=== PATIENT | male | born 1970 | race Caucasian/White ===

== ENCOUNTER 2018-10-25 12:18 | Inpatient (IN) | payer MEDICAID ==
[~2018-10-25] VITALS: Ht 177.8 cm; Wt 79.5 kg
--- NOTE | 2018-10-25 12:42 | NUR ---
Healing puncture w/ slight surrounding swelling above L elbow x several wks.
[2018-10-25 12:56] LABS: BASOPHILS # (AUTO) 0.06 x10^3/uL (0-0.1); BASOPHILS % (AUTO) 1 % (0-1); EOSINOPHILS # (AUTO) 0.14 x10^3/uL (0-0.4); EOSINOPHILS % (AUTO) 1 % (1-7); LYMPHOCYTES # (AUTO) 2.79 x10^3/uL (1-3.4); LYMPHOCYTES % (AUTO) 22 % (22-44); MD NO; MEAN CORPUSCULAR HEMOGLOBIN 29.7 pg (27.5-34.5); MEAN CORPUSCULAR HGB CONC 33.2 g/dL (33.2-36.2); MEAN CORPUSCULAR VOLUME 89.4 fL (81-97); MONOCYTES # (AUTO) 0.53 x10^3/uL (0.2-0.8); MONOCYTES % (AUTO) 4 % (2-9); NEUTROPHILS # (AUTO) 9.01 x10^3/uL (1.8-6.8); NEUTROPHILS % (AUTO) 72 % (42-75); PLATELET COUNT 411 x10^3/uL (130-400); RED BLOOD COUNT 5.18 x10^6/uL (4.38-5.82); RED CELL DISTRIBUTION WIDTH 16.4 % (9.4-14.8)
--- NOTE | 2018-10-25 13:53 | NUR ---
Pt TBADM for possible infection at hardware site L arm. Pt updated, changed into gown, IV being est. Keeping NPO for now.
[2018-10-25 13:57] LABS: ANION GAP 3 mmol/L (5-15); CHLORIDE 107 mmol/L (98-107); CREATININE 1.25 mg/dL (0.7-1.3)
[2018-10-25] MEDS ORDERED: NICOTINE 21 MG/24 HR PATCH.TD24 ONE (14:04)
--- NOTE | 2018-10-25 14:10 | NUR ---
Break RN: Pt requesting to go outside to smoke, pt educated on admit process, pt agrees to nicotine patch. Pt ambulated to registration desk to use phone per request.
--- NOTE | 2018-10-25 14:12 | NUR ---
Break RN: Ortho at bedside for eval.
[2018-10-25] MEDS ORDERED: NICOTINE 21 MG/24 HR PATCH.TD24 TD ONE (14:30)
[2018-10-25] MEDS ORDERED: SODIUM CHLORIDE FLUSH 10ML SYR IVF PRN (15:00)
--- NOTE | 2018-10-25 15:10 | NUR ---
Resting comfortably, watching T.V. Waiting on room assignment.
--- NOTE | 2018-10-25 15:52 | NUR ---
Report to Mati SALAMANCA, 4N. Pt updated on room assignment.
[2018-10-25 16:55] VITALS: BP 136/95
[2018-10-25] MEDS ORDERED: VANCOMYCIN PER PHARMACY MC PRN (17:00)
[2018-10-25] MEDS ORDERED: VANCOMYCIN IV SCH (17:00)
[2018-10-25] MEDS ORDERED: hydrALAzine 20 MG/ML, 1ML IVPush PRN (17:00)
[2018-10-25] MEDS ORDERED: LABETALOL 5MG/ML, 20ML IVPush PRN (17:00)
[2018-10-25] MEDS ORDERED: ACETAMINOPHEN 325 MG TABLET PO PRN ×2 (17:00→20:30)
[2018-10-25] MEDS ORDERED: ONDANSETRON 2MG/ML, 2ML IVPush PRN (17:00)
[2018-10-25] MEDS ORDERED: IBUPROFEN 600 MG TABLET PO PRN (17:00)
[2018-10-25] MEDS ORDERED: GABAPENTIN 300 MG CAPSULE PO PRN (17:00)
[2018-10-25] MEDS ORDERED: BISACODYL 10 MG SUPP PR PRN (17:00)
[2018-10-25] MEDS ORDERED: ZOLPIDEM 5MG TABLET PO PRN (17:00)
[2018-10-25] MEDS ORDERED: ONDANSETRON ODT 4 MG PO PRN (17:00)
[2018-10-25] MEDS ORDERED: PHARMACOKINETIC CONSULTATION MC ONE (17:30)
[2018-10-25] MEDS ORDERED: PHARMACOKINETIC MONITORING MC PRN (17:30)
[2018-10-25] MEDS: NICOTINE 21 MG/24 HR PATCH.TD24 TD SCH (17:31)
[2018-10-25 17:39] LABS: HCT (SEDRATE) 45.5 % (39.2-51.8)
[2018-10-25] MEDS ORDERED: BUPIVACAINE/PF-EPI 0.5% 1:200K ONE (17:41)
[2018-10-25] MEDS: AMPICILLIN/SULBACTAM 3 GM in SODIUM CHLORIDE 0.9% 100 ML IV SCH (17:46)
[2018-10-25] MEDS: LACTATED RINGERS 1,000 ML IV SCH (17:46)
[2018-10-25 17:49] LABS: C-REACTIVE PROTEIN, QUANT 0.13 mg/dL (0.02-0.49)
[2018-10-25 17:58] LABS: FREE T4 (FREE THYROXINE) 0.83 ng/dL (0.76-1.46); THYROID STIMULATING HORMONE 0.698 mIU/L (0.358-3.740)
[2018-10-25] MEDS: VANCOMYCIN 1,500 MG in SODIUM CHLORIDE 0.9% 250 ML IV SCH (18:28)
[2018-10-25 19:03] VITALS: BP 130/86
[2018-10-25] MEDS ORDERED: MIDAZOLAM 1 MG/ML, 2ML ONE (19:45)
[2018-10-25] MEDS ORDERED: FENTANYL PF 250 MCG/5ML ONE (19:45)
[2018-10-25] MEDS ORDERED: PHENYLEPHRINE 10 MG/ML ONE (19:47)
[2018-10-25] MEDS ORDERED: HYDROmorphone 2 MG/ML, 1ML IVPush PRN (20:30)
[2018-10-25] MEDS ORDERED: OXYcodone 5 MG/5 ML ORAL.SOL UDC PO PRN (20:30)
[2018-10-25] MEDS ORDERED: ONDANSETRON 2MG/ML, 2ML IV PRN (20:30)
[2018-10-25] MEDS ORDERED: MEPERIDINE/PF 25MG/0.5ML IVPush PRN (20:30)
[2018-10-25] MEDS ORDERED: ONDANSETRON ODT 8 MG PO PRN (20:30)
[2018-10-25] MEDS ORDERED: PROMETHAZINE 25 MG/ML, 1ML IV PRN (20:30)
[2018-10-25] MEDS ORDERED: LORazepam 2 MG/ML, 1ML IVPush PRN (20:30)
[2018-10-25] MEDS ORDERED: CEFAZOLIN 1,000 MG ONE (20:53)
[2018-10-25] MEDS ORDERED: GLYCOPYRROLATE 0.2MG/1ML, 5ML ONE (20:53)
[2018-10-25] MEDS ORDERED: OXYcodone 5 MG/5 ML ORAL.SOL UDC ONE (20:53)
[2018-10-25] MEDS ORDERED: ACETAMINOPHEN 650 MG/20.3 ML UDC ONE (20:53)
[2018-10-25] MEDS ORDERED: DEXAMETHASONE 4 MG/ML, 1ML ONE (20:53)
[2018-10-25] MEDS ORDERED: FENTANYL PF 100 MCG/2ML ONE (20:53)
[2018-10-25] MEDS ORDERED: ONDANSETRON 2MG/ML, 2ML ONE (20:53)
[2018-10-25] MEDS ORDERED: SUCCINYLCHOLINE 20 MG/ML, 10ML ONE (20:53)
[2018-10-25] MEDS ORDERED: PROPOFOL 10 MG/ML, 20ML ONE (20:53)
[2018-10-25] MEDS ORDERED: NEOSTIGMINE 1 MG/ML, 10ML ONE (20:53)
[2018-10-25] MEDS ORDERED: ROCURONIUM 10MG/ML,5ML ONE (20:53)
[2018-10-25] MEDS: FAMOTIDINE 20 MG TABLET PO SCH (21:00)
[2018-10-25] MEDS: FENTANYL PF 100 MCG/2ML IV PRN ×2 (21:12→21:27)
[2018-10-25] MEDS ORDERED: HYDROmorphone 1 MG/ML, 1ML IV PRN (22:30)
[2018-10-25] MEDS: ENOXAPARIN 40 MG/0.4 ML SQ SCH (23:18)
[2018-10-26 00:14] VITALS: BP 115/77
[2018-10-26] MEDS: OXYcodone/APAP 10/325MG TABLET PO PRN ×4 (01:10→20:09)
[2018-10-26] MEDS: AMPICILLIN/SULBACTAM 3 GM in SODIUM CHLORIDE 0.9% 100 ML IV SCH ×3 (01:10→17:14)
[2018-10-26] MEDS: LACTATED RINGERS 1,000 ML IV SCH ×3 (03:00→23:00)
[2018-10-26 03:39] VITALS: BP 105/63
[2018-10-26 05:29] LABS: BASOPHILS # (AUTO) 0.02 x10^3/uL (0-0.1); BASOPHILS % (AUTO) 0 % (0-1); EOSINOPHILS # (AUTO) 0.07 x10^3/uL (0-0.4); EOSINOPHILS % (AUTO) 1 % (1-7); LYMPHOCYTES # (AUTO) 1.35 x10^3/uL (1-3.4); LYMPHOCYTES % (AUTO) 16 % (22-44); MD NO; MEAN CORPUSCULAR HEMOGLOBIN 30.1 pg (27.5-34.5); MEAN CORPUSCULAR HGB CONC 33.7 g/dL (33.2-36.2); MEAN CORPUSCULAR VOLUME 89.5 fL (81-97); MEAN PLATELET VOLUME 8.1 fL (7.4-10.4); MONOCYTES # (AUTO) 0.27 x10^3/uL (0.2-0.8); MONOCYTES % (AUTO) 3 % (2-9); NEUTROPHILS # (AUTO) 6.92 x10^3/uL (1.8-6.8); NEUTROPHILS % (AUTO) 80 % (42-75); PLATELET COUNT 378 x10^3/uL (130-400); RED BLOOD COUNT 4.69 x10^6/uL (4.38-5.82)
[2018-10-26 05:40] LABS: ANION GAP 4 mmol/L (5-15); CHLORIDE 107 mmol/L (98-107)
[2018-10-26 05:41] LABS: CREATININE 1.12 mg/dL (0.7-1.3)
[2018-10-26 07:21] VITALS: BP 106/70
[2018-10-26] MEDS: NICOTINE 21 MG/24 HR PATCH.TD24 TD SCH (09:12)
[2018-10-26] MEDS: FAMOTIDINE 20 MG TABLET PO SCH ×2 (09:12→19:51)
[2018-10-26 14:22] VITALS: BP 129/72
[2018-10-26] MEDS: VANCOMYCIN 1,500 MG in SODIUM CHLORIDE 0.9% 250 ML IV SCH (17:44)
[2018-10-26 19:14] VITALS: BP 127/88
[2018-10-26] MEDS: ENOXAPARIN 40 MG/0.4 ML SQ SCH (19:59)
[2018-10-27] MEDS: AMPICILLIN/SULBACTAM 3 GM in SODIUM CHLORIDE 0.9% 100 ML IV SCH ×2 (01:16→09:24)
[2018-10-27 03:30] VITALS: BP 120/78
[2018-10-27 05:44] LABS: BASOPHILS # (AUTO) 0.07 x10^3/uL (0-0.1); BASOPHILS % (AUTO) 1 % (0-1); EOSINOPHILS # (AUTO) 0.23 x10^3/uL (0-0.4); EOSINOPHILS % (AUTO) 3 % (1-7); LYMPHOCYTES # (AUTO) 3.83 x10^3/uL (1-3.4); LYMPHOCYTES % (AUTO) 41 % (22-44); MD NO; MEAN CORPUSCULAR HEMOGLOBIN 30.8 pg (27.5-34.5); MEAN CORPUSCULAR HGB CONC 34.8 g/dL (33.2-36.2); MEAN CORPUSCULAR VOLUME 88.3 fL (81-97); MEAN PLATELET VOLUME 7.6 fL (7.4-10.4); MONOCYTES # (AUTO) 0.76 x10^3/uL (0.2-0.8); MONOCYTES % (AUTO) 8 % (2-9); NEUTROPHILS # (AUTO) 4.44 x10^3/uL (1.8-6.8); NEUTROPHILS % (AUTO) 48 % (42-75); PLATELET COUNT 359 x10^3/uL (130-400); RED BLOOD COUNT 4.59 x10^6/uL (4.38-5.82); RED CELL DISTRIBUTION WIDTH 16.5 % (9.4-14.8)
[2018-10-27 06:01] LABS: CHLORIDE 110 mmol/L (98-107)
[2018-10-27 06:05] LABS: ANION GAP 4 mmol/L (5-15); CALCIUM 8.6 mg/dL (8.5-10.1); CREATININE 0.85 mg/dL (0.7-1.3)
[2018-10-27 07:31] VITALS: BP 112/68
[2018-10-27] MEDS: FAMOTIDINE 20 MG TABLET PO SCH ×2 (07:52→20:23)
[2018-10-27] MEDS: NICOTINE 21 MG/24 HR PATCH.TD24 TD SCH (07:52)
[2018-10-27] MEDS: OXYcodone/APAP 10/325MG TABLET PO PRN ×3 (07:52→18:13)
[2018-10-27] MEDS: LACTATED RINGERS 1,000 ML IV SCH ×2 (09:00→19:00)
[2018-10-27 12:34] VITALS: BP 124/79
[2018-10-27] MEDS: CEFAZOLIN 2,000 MG in SODIUM CHLORIDE 0.9% 50 ML IV SCH ×2 (13:19→20:23)
[2018-10-27 19:13] VITALS: BP 135/88
[2018-10-27] MEDS: ENOXAPARIN 40 MG/0.4 ML SQ SCH (20:23)
[2018-10-28 01:28] VITALS: BP 108/65
[2018-10-28] MEDS: CEFAZOLIN 2,000 MG in SODIUM CHLORIDE 0.9% 50 ML IV SCH ×3 (04:00→21:01)
[2018-10-28] MEDS: LACTATED RINGERS 1,000 ML IV SCH ×3 (04:01→17:00)
[2018-10-28 06:00] LABS: BASOPHILS # (AUTO) 0.06 x10^3/uL (0-0.1); BASOPHILS % (AUTO) 1 % (0-1); EOSINOPHILS # (AUTO) 0.29 x10^3/uL (0-0.4); EOSINOPHILS % (AUTO) 3 % (1-7); LYMPHOCYTES # (AUTO) 3.91 x10^3/uL (1-3.4); LYMPHOCYTES % (AUTO) 45 % (22-44); MD NO; MEAN CORPUSCULAR HEMOGLOBIN 30.7 pg (27.5-34.5); MEAN CORPUSCULAR HGB CONC 34.6 g/dL (33.2-36.2); MEAN CORPUSCULAR VOLUME 88.7 fL (81-97); MEAN PLATELET VOLUME 8.2 fL (7.4-10.4); MONOCYTES # (AUTO) 0.74 x10^3/uL (0.2-0.8); MONOCYTES % (AUTO) 9 % (2-9); NEUTROPHILS % (AUTO) 43 % (42-75); PLATELET COUNT 363 x10^3/uL (130-400); RED BLOOD COUNT 4.89 x10^6/uL (4.38-5.82); RED CELL DISTRIBUTION WIDTH 16.2 % (9.4-14.8)
[2018-10-28 06:10] LABS: ANION GAP 6 mmol/L (5-15); CHLORIDE 107 mmol/L (98-107); CREATININE 0.96 mg/dL (0.7-1.3)
[2018-10-28 06:46] VITALS: BP 114/71
[2018-10-28] MEDS: FAMOTIDINE 20 MG TABLET PO SCH ×2 (08:39→21:01)
[2018-10-28] MEDS: OXYcodone/APAP 10/325MG TABLET PO PRN ×3 (08:39→21:01)
[2018-10-28] MEDS: NICOTINE 21 MG/24 HR PATCH.TD24 TD SCH (08:39)
[2018-10-28] MEDS: POLYETHYLENE GLYCOL 17 GM PACKET PO PRN (08:45)
[2018-10-28] MEDS: DOCUSATE 100 MG CAPSULE PO PRN (08:45)
[2018-10-28 12:25] VITALS: BP 113/62
[2018-10-28 20:02] VITALS: BP 119/83
[2018-10-28] MEDS: ENOXAPARIN 40 MG/0.4 ML SQ SCH (21:01)
[2018-10-29 00:43] VITALS: BP 104/62
[2018-10-29] MEDS: LACTATED RINGERS 1,000 ML IV SCH ×2 (03:00→12:44)
[2018-10-29] MEDS: CEFAZOLIN 2,000 MG in SODIUM CHLORIDE 0.9% 50 ML IV SCH ×2 (05:07→12:44)
[2018-10-29 05:15] LABS: BASOPHILS # (AUTO) 0.07 x10^3/uL (0-0.1); BASOPHILS % (AUTO) 1 % (0-1); EOSINOPHILS # (AUTO) 0.31 x10^3/uL (0-0.4); EOSINOPHILS % (AUTO) 4 % (1-7); LYMPHOCYTES # (AUTO) 3.66 x10^3/uL (1-3.4); LYMPHOCYTES % (AUTO) 42 % (22-44); MD NO; MEAN CORPUSCULAR HEMOGLOBIN 29.7 pg (27.5-34.5); MEAN CORPUSCULAR HGB CONC 33.2 g/dL (33.2-36.2); MEAN CORPUSCULAR VOLUME 89.5 fL (81-97); MONOCYTES # (AUTO) 0.83 x10^3/uL (0.2-0.8); MONOCYTES % (AUTO) 10 % (2-9); NEUTROPHILS # (AUTO) 3.81 x10^3/uL (1.8-6.8); NEUTROPHILS % (AUTO) 44 % (42-75); PLATELET COUNT 386 x10^3/uL (130-400); RED BLOOD COUNT 5.04 x10^6/uL (4.38-5.82); RED CELL DISTRIBUTION WIDTH 15.9 % (9.4-14.8)
[2018-10-29 05:25] LABS: ANION GAP 4 mmol/L (5-15); CALCIUM 8.8 mg/dL (8.5-10.1); CHLORIDE 108 mmol/L (98-107); CREATININE 0.91 mg/dL (0.7-1.3)
[2018-10-29 07:35] VITALS: BP 111/70
[2018-10-29] MEDS: POLYETHYLENE GLYCOL 17 GM PACKET PO PRN (08:45)
[2018-10-29] MEDS: NICOTINE 21 MG/24 HR PATCH.TD24 TD SCH (08:45)
[2018-10-29] MEDS: FAMOTIDINE 20 MG TABLET PO SCH (08:45)
[2018-10-29] MEDS: DOCUSATE 100 MG CAPSULE PO PRN (08:45)
[2018-10-29] MEDS: OXYcodone/APAP 10/325MG TABLET PO PRN ×2 (09:06→13:28)
[2018-10-29] MEDS ORDERED: OXYC-432 PO (12:31)
[2018-10-29] MEDS ORDERED: BISA10SU54 PR (12:31)
[2018-10-29] MEDS ORDERED: ACET325T14 PO (12:31)
[2018-10-29] MEDS ORDERED: ONDA4TAB13 PO (12:31)
[2018-10-29] MEDS ORDERED: NICO-487 TD (12:31)
[2018-10-29] MEDS ORDERED: FAMO20TA7 PO (12:31)
[2018-10-29] MEDS ORDERED: CEFA2PLA9 IV (12:31)
[2018-10-29 12:34] VITALS: BP 108/62
[2018-10-29 13:51] VITALS: BP 114/64
== END 2018-10-29 15:15 | DRG 507 ==
LOC: ED 14:54 → EDIP 14:55 → 4NOR 16:23
PROVIDERS: ADMIT Hospitalist; ATTEND Hospitalist
PROC: 0RPM04Z Removal of Internal Fixation Device from Left Elbow Joint, Open Approach (ICD-10-PCS; 2018-10-25)
PROC: 0PBL0ZZ Excision of Left Ulna, Open Approach (ICD-10-PCS; principal; 2018-10-25 20:00)
DX: T84.69XA Infection and inflammatory reaction due to internal fixation device of other site, initial encounter (principal); L03.114 Cellulitis of left upper limb; M86.8X8 Other osteomyelitis, other site; B95.61 Methicillin susceptible Staphylococcus aureus infection as the cause of diseases classified elsewhere; F17.210 Nicotine dependence, cigarettes, uncomplicated; F12.90 Cannabis use, unspecified, uncomplicated; K59.00 Constipation, unspecified; Y83.8 Other surgical procedures as the cause of abnormal reaction of the patient, or of later complication, without mention of misadventure at the time of the procedure; Z59.0 Homelessness; Z86.73 Personal history of transient ischemic attack (TIA), and cerebral infarction without residual deficits; Z80.1 Family history of malignant neoplasm of trachea, bronchus and lung; Y92.89 Other specified places as the place of occurrence of the external cause
CPT/HCPCS: 36415; 73080; 84145; 87806; 99285; J3490; 80048; 84439; 84443; 85025; 85651; 86140; 86704; 86706; 86708; 86803; 87040; 87070; 87075; 87077; 87176; 87186; 87205; 87340; G0378; J0295; J0690; J1100; J1650; J2250; J2405; J2704; J2710; J3010; J3370; G0475; J0330; J0360; J2370; J7050; J7120